=== PATIENT | male | born 1970 | race African-American/Black ===

== ENCOUNTER 2016-06-05 12:27 | Emergency (ER) | payer SELFPAY ==
[~2016-06-05] VITALS: Ht 175.3 cm; Wt 82.1 kg
[2016-06-05 13:55] VITALS: BP 148/108
== END 2016-06-05 13:55 | disposition home or self-care (01) ==
LOC: ED 12:27
DX: H00.11 Chalazion right upper eyelid (principal); S00.212A Abrasion of left eyelid and periocular area, initial encounter; W20.8XXA Other cause of strike by thrown, projected or falling object, initial encounter; Y93.89 Activity, other specified; Y92.89 Other specified places as the place of occurrence of the external cause; Y99.8 Other external cause status

== ENCOUNTER 2016-12-15 05:23 | Emergency (ER) | payer MEDICAID ==
[2016-12-15 06:47] VITALS: BP 160/98
== END 2016-12-15 06:59 | disposition home or self-care (01) ==
LOC: ED 05:23
DX: K52.9 Noninfective gastroenteritis and colitis, unspecified (principal); J06.9 Acute upper respiratory infection, unspecified

== ENCOUNTER 2017-02-07 07:49 | Emergency (ER) | payer MEDICAID ==
[~2017-02-07] VITALS: Ht 175.3 cm; Wt 85.8 kg
[2017-02-07 07:57] VITALS: Ht 175.3 cm; Wt 85.8 kg
[2017-02-07 10:04] VITALS: BP 121/74
== END 2017-02-07 10:04 | disposition home or self-care (01) ==
LOC: ED 07:49
DX: S46.911A Strain of unspecified muscle, fascia and tendon at shoulder and upper arm level, right arm, initial encounter (principal); S86.811A Strain of other muscle(s) and tendon(s) at lower leg level, right leg, initial encounter; X50.9XXA Other and unspecified overexertion or strenuous movements or postures, initial encounter; Y93.89 Activity, other specified; Y99.8 Other external cause status; Y92.89 Other specified places as the place of occurrence of the external cause
CPT/HCPCS: Q0092